=== PATIENT | male | born 1950 | race Caucasian/White ===

== ENCOUNTER 2018-10-19 15:37 | Outpatient (CLI) | payer MEDICARE, MEDICAID ==
[2018-10-19 16:05] LABS: Estimated GFR-MDRD - POC Greater than 90
== END 2018-10-19 15:38 | disposition home or self-care (01) ==
LOC: CT 15:37
PROVIDERS: ATTEND Thoracic Surgery (Cardiothoracic Vascular Surgery)
DX: Z53.9 Procedure and treatment not carried out, unspecified reason (principal)
CPT/HCPCS: 75635; 82565